=== PATIENT | male | born 1995 | race Caucasian/White ===

== ENCOUNTER 2018-07-05 16:20 | Emergency (ER) | END 2018-07-05 20:54 | disposition home or self-care (01) ==

== ENCOUNTER 2019-01-29 08:06 | Emergency (ER) | payer MEDICAID ==
[~2019-01-29] VITALS: Ht 157.5 cm; Wt 72.3 kg
[~2019-01-29 08:06] MED LIST: FER325 PO; PANT40TA3 PO
[2019-01-29 08:10] VITALS: BP 148/90; PULSE 97; RESP 20; Ht 157.5 cm; Wt 72.3 kg
[2019-01-29] MEDS ORDERED: KETOROLAC 60 MG INJ IM STA (08:36)
[2019-01-29] MEDS ORDERED: NAPR-985 PO (08:37)
--- NOTE | 2019-01-29 08:56 | ERD ---
ER Documentation Chief Complaint Chief Complaint Complains of a sorethroat and chest congestion x 3 days HPI 23-year-old male presenting with sore throat and congestion for 3 days. Patient has had no fevers. Patient has a mild runny nose with dry cough. Patient has been taking amoxicillin for 2 days with no alleviation of symptoms. Denies any chest pain or shortness of breath. Denies medical problems. NKDA. Surgical history denies. Up-to-date on vaccinations ROS All systems reviewed and are negative except as per history of present illness. Medications Home Meds Active Scripts Naproxen* (Naprosyn*) 500 Mg Tablet, 500 MG PO BID PRN for PAIN AND/OR INFLAMMATION, #30 TAB Prov:ZULEYMA GRADY PA-C 01/29/19 Pantoprazole* (Protonix*) 40 Mg Tablet.dr, 40 MG PO DAILY, #30 TAB Prov:GURU BECKWITH MD 07/05/18 Ferrous Sulfate* (Ferrous Sulfate*) 325 Mg Tabec, 325 MG PO TID for 30 Days, #90 TAB Prov:GURU BECKWITH MD 07/05/18 Allergies Allergies: Coded Allergies: No Known Allergy (Unverified , 07/05/18) PMhx/Soc History of Surgery: No Anesthesia Reaction: No Hx Neurological Disorder: No Hx Respiratory Disorders: No Hx Cardiac Disorders: No Hx Psychiatric Problems: No Hx Alcohol Use: No Hx Substance Use: No Hx Tobacco Use: No Smoking Status: Never smoker FmHx Family History: No diabetes, No coronary disease, No other Physical Exam Vitals Vital Signs Date Temp Pulse Resp B/P (MAP) Pulse Ox O2 O2 Flow FiO2 Time Delivery Rate 01/29/19 97.0 97 20 148/90 99 08:10 (109) Physical Exam GENERAL: The patient is well-appearing, well-nourished, in no acute distress HEENT: Atraumatic. Conjunctivae are pink. Pupils equal, round, and reactive to light. There is no scleral icterus. Tympanic membranes clear bilaterally. Oropharynx clear. NECK: C-spine is soft and supple. There is no meningismus. There is no cervical lymphadenopathy. CHEST: Clear to auscultation bilaterally. There are no rales, wheezes or rhonchi. HEART: Regular rate and rhythm. No murmurs, clicks, rubs or gallops. Results 24 hrs Current Medications Medications Dose Sig/Zeinab Start Time Status Last (Trade) Ordered Route PRN Stop Time Admin Dose Reason Admin Ketorolac 60 mg ONCE STAT 01/29/19 DC Tromethamine IM 08:36 (Toradol) 01/29/19 08:38 Procedures/MDM ER course: Toradol given ED. MDM: 23-year-old male presenting with sore throat. Patient likely has viral URI. I do not feel patient requires antibiotics and I told him to stop taking antibiotics that he is self prescribed. I have low suspicion for peritonsillar retropharyngeal abscess. I have low suspicion for pneumonia. Patient is discharged stricter precautions and told to follow-up with primary care within 1-2 days for close evaluation. Patient is told if symptoms change or worsen to return immediately to the ER. All questions answered at discharge Departure Diagnosis: Primary Impression: Sore throat Condition: Stable Patient Instructions: When You Have a Sore Throat Referrals: [facility] YOU HAVE RECEIVED A MEDICAL SCREENING EXAM AND THE RESULTS INDICATE THAT YOU DO NOT HAVE A CONDITION THAT REQUIRES URGENT TREATMENT IN THE EMERGENCY DEPARTMENT. FURTHER EVALUATION AND TREATMENT OF YOUR CONDITION CAN WAIT UNTIL YOU ARE SEEN IN YOUR DOCTORS OFFICE WITHIN THE NEXT 1-2 DAYS. IT IS YOUR RESPONSIBILITY TO MAKE AN APPOINTMENT FOR FOLOW-UP CARE. IF YOU HAVE A PRIMARY DOCTOR --you should call your primary doctor and schedule an appointment IF YOU DO NOT HAVE A PRIMARY DOCTOR YOU CAN CALL OUR PHYSICIAN REFERRAL HOTLINE AT IF YOU CAN NOT AFFORD TO SEE A PHYSICIAN YOU CAN CHOSE FROM THE FOLLOWING [facility] [address] [facility] [address] [facility] [address] [facility] [address] [facility] [address] [facility] [facility]. [address] Additional Instructions: FOLLOW UP WITH YOUR PRIMARY CARE PHYSICIAN TOMORROW.Return to this facility if you are not improving as expected. ZULEYMA GRADY PA-C Jan 29, 2019 08:56
== END 2019-01-29 09:02 | disposition home or self-care (01) ==
LOC: FTE 08:06
DX: J02.9 Acute pharyngitis, unspecified (principal)
CPT/HCPCS: 96372; J1885; Z7502